=== PATIENT | female | born 1970 | race Native Hawaiian/Other Pacific Islander ===

== ENCOUNTER 2018-09-27 14:22 | Emergency (ER) | payer OTHER ==
[~2018-09-27] VITALS: Ht 162.6 cm; Wt 79.4 kg
[2018-09-27 14:32] VITALS: TEMP 97.5
[2018-09-27 15:15] LABS: POTASSIUM 3.9 mmol/L (3.6-5.2)
[2018-09-27 15:22] LABS: PLATELET COUNT 362 K/uL (152-353)
== END 2018-09-27 16:06 | disposition home or self-care (01) ==
LOC: ED 14:22
PROVIDERS: Emergency Medicine
DX: N20.1 Calculus of ureter (principal)
CPT/HCPCS: 36415; 80053; 81000; 85027; 96365; 96374; 96375; 99284; J1885; J2175; J2405